=== PATIENT | female | born 2000 | race Two or more races ===

== ENCOUNTER 2019-05-15 06:07 | Emergency (ER) | payer OTHER ==
[~2019-05-15] VITALS: Ht 152.4 cm; Wt 71.3 kg
[2019-05-15] MEDS ORDERED: SODIUM CHLORIDE 0.9% 1,000ML IVBOLUS ONE (06:30)
[2019-05-15] MEDS ORDERED: SODIUM CHLORIDE FLUSH 10ML SYR IVF ONE (06:30)
[2019-05-15] MEDS ORDERED: ONDANSETRON ODT 4 MG PO ONE (06:30)
--- NOTE | 2019-05-15 06:40 | NUR ---
Pt c/o abd pain, n/v/d x 4 days, recently seen at [facility] on Monday, given "amoxacillin and sent home", symptoms not improved this am. Pt reports 17 weeks , spotting, cramping, t-max 100.0 monday. Vitals stable.
--- NOTE | 2019-05-15 06:59 | NUR ---
urine obtained and sent to lab. bedside report given to oncoming shift.
--- NOTE | 2019-05-15 07:00 | NUR ---
REPORT RECIEVED FROM GISSELLE BELL
[2019-05-15] MEDS ORDERED: ONDANSETRON ODT 4 MG ONE (07:04)
--- NOTE | 2019-05-15 07:11 | NUR ---
L&D NOTIFIED TO HAVE PATIENT EVALUATED.
[2019-05-15 07:16] LABS: BASOPHILS # (AUTO) 0.03 x10^3/uL (0-0.1); BASOPHILS % (AUTO) 0 % (0-1); EOSINOPHILS % (AUTO) 0 % (1-7); LYMPHOCYTES # (AUTO) 1.08 x10^3/uL (1-3.4); LYMPHOCYTES % (AUTO) 14 % (22-44); MD NO; MEAN CORPUSCULAR HEMOGLOBIN 28.3 pg (27.0-34.8); MEAN CORPUSCULAR HGB CONC 33.4 g/dL (32.4-35.8); MEAN CORPUSCULAR VOLUME 84.8 fL (80-100); MONOCYTES # (AUTO) 0.74 x10^3/uL (0.2-0.8); MONOCYTES % (AUTO) 9 % (2-9); NEUTROPHILS # (AUTO) 6.09 x10^3/uL (1.8-6.8); NEUTROPHILS % (AUTO) 77 % (42-75); PLATELET COUNT 225 x10^3/uL (130-400); RED BLOOD COUNT 4.23 x10^6/uL (3.82-5.3); RED CELL DISTRIBUTION WIDTH 13.9 % (9.6-15.2)
[2019-05-15 07:23] LABS: ALANINE AMINOTRANSFERASE 27 U/L (12-78); ALBUMIN 2.6 g/dL (3.4-5.0); ANION GAP 9 mmol/L (5-15); CALCIUM 8.5 mg/dL (8.5-10.1); CHLORIDE 106 mmol/L (98-107); CREATININE 0.44 mg/dL (0.55-1.02)
[2019-05-15 07:24] LABS: MICROSCOPIC NOT IND
[2019-05-15 07:25] LABS: ALKALINE PHOSPHATASE 59 U/L (45-117); BILIRUBIN,TOTAL 0.4 mg/dL (0.2-1.0); TOTAL PROTEIN 6.9 g/dL (6.4-8.2)
[2019-05-15 07:28] LABS: CULTURE INDICATED? NO
--- NOTE | 2019-05-15 08:04 | NUR ---
[facility] 148 CONFIRMED W L&D. RN CANNOT VIEW L&D INTERVENTION.
--- NOTE | 2019-05-15 08:18 | NUR ---
PT AMBULATED TO BATHROOM STEADY. STOOL SAMPLE COLLECTED.
[2019-05-15 08:42] VITALS: BP 103/62
[2019-05-15 09:11] LABS: CLOSTRIDIUM DIFFICILE ANTIGEN NEGATIVE; CLOSTRIDIUM DIFFICILE TOXIN NEGATIVE (Negative)
--- NOTE | 2019-05-15 09:28 | NUR ---
Patient given discharge instructions and they have confirmed that they understand the instructions. Patient ambulatory with steady gait.
== END 2019-05-15 09:30 | disposition home or self-care (01) ==
LOC: ED 06:50
DX: O99.612 Diseases of the digestive system complicating pregnancy, second trimester (principal); K92.89 Other specified diseases of the digestive system; Z3A.17 17 weeks gestation of pregnancy
CPT/HCPCS: 36415; 80053; 81003; 82140; 82607; 85025; 87324; 89055; 99283; J7030; Q0162